=== PATIENT | female | born 1950 | race Caucasian/White ===

== ENCOUNTER 2019-12-14 21:02 | Emergency (ER) | payer OTHER ==
[2019-12-14 21:14] VITALS: BP 150/94; PULSE 75; TEMP 98.2; BMI 33.0
[2019-12-14] MEDS ORDERED: CEPHALEXIN MONOHYDRATE 500 MG CAPSULE (UD) PO ONE (21:22)
[2019-12-14] MEDS ORDERED: SULFAMETHOXAZOLE/TRIMETHOPRIM 800MG/160MG D.S. TABLET PO ONE (21:22)
[2019-12-14] MEDS ORDERED: CEPHALEXIN MONOHYDRATE 500 MG CAPSULE (UD) ONE (21:24)
[2019-12-14] MEDS ORDERED: SULFAMETHOXAZOLE/TRIMETHOPRIM 800MG/160MG D.S. TABLET ONE (21:24)
== END 2019-12-14 21:31 | disposition home or self-care (01) ==
LOC: SUPCPDRO 21:02 → FER 21:02
DX: S40.861A Insect bite (nonvenomous) of right upper arm, initial encounter (principal); L03.113 Cellulitis of right upper limb; W57.XXXA Bitten or stung by nonvenomous insect and other nonvenomous arthropods, initial encounter
CPT/HCPCS: 99283-25

== ENCOUNTER 2021-03-17 17:01 | Emergency (ER) | payer OTHER ==
[2021-03-17 17:17] VITALS: BP 142/74; PULSE 66; TEMP 99.1; BMI 33.5
[2021-03-17] MEDS ORDERED: MAG HYDROX/AL HYDROX/SIMETH 30 ML UNIT-DOSE CUP PO ONE (17:49)
[2021-03-17] MEDS ORDERED: MAG HYDROX/AL HYDROX/SIMETH 30 ML UNIT-DOSE CUP ONE (17:57)
== END 2021-03-17 18:15 | disposition home or self-care (01) ==
LOC: FER 17:01
DX: K21.9 Gastro-esophageal reflux disease without esophagitis (principal)
CPT/HCPCS: 93005; 99283-25